=== PATIENT | female | born 1940 | race Hispanic/Latino ===

== ENCOUNTER 2017-03-04 16:04 | Inpatient (IN) | payer MEDICARE, OTHER ==
[~2017-03-04] VITALS: Ht 162.6 cm; Wt 75.8 kg
[~2017-03-04 16:04] MED LIST: ACETAMINOP325 MG/10 PEG; ACTONEL; ALBUTEROL2.5 MG/3 M INH; ALLOPURINOL300 MG PO; ASPIRIN; ASPIRIN CHEW81 MG PO; ASPIRIN81 M1 PEG; CIPRO500 MG PO; CLARITIN-D 241 EACH PO; CYMBALTA30 MG PO; CYMBALTA60 MG PEG; FLAGYL250 MG PO; FLONASE; FOLIC ACID1 MG PO; FUROSEMIDE; GABAPENTIN100 MG PEG; GINKGO BILOBA60 M1 PEG; GLIPIZIDE; HUMALOG100 UNIT/1 SQ; JANUMET; KEFLEX500 MG PO; LANTUS; LASIX40 MG PEG; LEVAQUIN500 MG PO; LEVEMIR100 UNIT/1 SQ; LIDODERM PATCH TOP; LYRICA50 MG PO; MACROBID 100 M100 MG PO; METOLAZONE5 MG PEG; METOPROLOL TART25 MG PO; NORCO 7.5-3251 EACH PO; NOVOLOG100 UNIT/1 SQ; NOVOLOG100 UNITS1 SC; NOVOLOG100 UNITS1 SQ; NOVOLOG100 UNITS1 SUBD; NYSTATIN1 EAC1 TOP; PANTOPRAZOLE SO20 MG PEG; PROTONIX40 MG PEG; PROTONIX40 MG/ML; QUESTRAN POWDE378 GM; REGLAN10 MG PO; TORSEMIDE20 MG PO; TRAMADOL-ACETAMI1 EA PO; TYLENOL WITH C1 EACH PO; ULTRAM 50MG50 MG PO; VANCOCIN HCL250 MG PO; VESICARE; VESICARE10 MG PO; VITAMIN B-12; VITAMIN D400 UNIT PO; VYTORIN; VYTORIN 10-401 EACH PO; ZAROXOLYN5 MG; ZOFRAN ODT4 MG PO; [UNRECOGNIZED DRUG - OTHER]; [UNRECOGNIZED DRUG - OTHER] PO
[2017-03-04] MEDS ORDERED: METHYLPREDNISOLONE SOD SUCC 125 MG/2ML VIAL IV STA (16:06)
[2017-03-04] MEDS ORDERED: IPRATROPIUM BROMIDE 0.02% 2.5 ML NEB NEB STA (16:06)
[2017-03-04] MEDS ORDERED: ALBUTEROL SULF 0.083% NEB SOLN 3 ML NEB NEB ONE (16:30)
--- NOTE | 2017-03-04 16:40 | Diagnostic Imaging Report ---
PROCEDURE: A single AP view of the chest. COMPARISON: Portal chest 01/29/2017. INDICATIONS: LOW O2 SATURATION FINDINGS: Lines/tubes: Tracheostomy catheter is present with the tip projecting over the expected region of the trachea, position 5 cm from the hiram. Lungs: Bilateral lung base air space opacities. Pleura: Moderate left pleural effusion. Small right pleural effusion. No pneumothorax. Heart and mediastinum: The heart and the mediastinum are unremarkable. Aortic stent graft. Atherosclerotic calcifications. Bones: No acute bony abnormality. Media sternotomy wires. Anterior cervical spine fusion hardware. Degenerative changes of the thoracic spine. IMPRESSION: Bilateral lung base air space opacities may represent atelectasis or developing pneumonia. Bilateral pleural effusions. Dictated by: Marcus Rose M.D. on 03/04/2017 at 16:47 Electronically approved by: Marcus Rose M.D. on 03/04/2017 at 16:47
[2017-03-04 17:29] LABS: BASOPHILS % 0.2 % (0.0-1.0); EOSINOPHILS # (AUTO) 0.1 (0.0-0.4); EOSINOPHILS % 0.3 % (0.0-6.0); HEMOGLOBIN 8.2 g/dL (12.0-16.0); LYMPHOCYTES # (AUTO) 1.3 (1.0-3.2); LYMPHOCYTES % 8.9 % (18.0-39.1); MEAN CORPUSCULAR HEMOGLOBIN 30.7 pg (28-32); MEAN CORPUSCULAR HGB CONC 34.2 g/dL (31-35); MEAN CORPUSCULAR VOLUME 89.9 fL (81-99); MONOCYTES % 6.5 % (4.4-11.3); NEUTROPHILS # (AUTO) 12.2 (2.1-6.9); NEUTROPHILS % 83.2 % (38.7-80.0); PLATELET COUNT 280 x10e3/uL (140-360); RED BLOOD COUNT 2.67 x10e6/uL (3.6-5.1); RED CELL DISTRIBUTION WIDTH 16.3 % (11.7-14.4)
[2017-03-04 17:52] LABS: ALBUMIN 2.5 g/dL (3.5-5.0); ALBUMIN/GLOBULIN RATIO 0.4 (0.8-2.0); ANION GAP 18.1 mmol/L (8-16); CREATININE, SERUM 2.62 mg/dL (0.57-1.11); POTASSIUM 5.1 mmol/L (3.5-5.1)
[2017-03-04] MEDS ORDERED: SODIUM CHLORIDE FLUSH 10 ML SYR INJ PRN (18:15)
[2017-03-04] MEDS ORDERED: METOCLOPRAMIDE10 MG PEG (18:22)
[2017-03-04] MEDS ORDERED: CLONIDINE HCL0.1 MG PEG (18:22)
[2017-03-04] MEDS ORDERED: AMLODIPINE BESY10 MG PEG (18:22)
[2017-03-04] MEDS ORDERED: METOPROLOL TART50 MG PEG (18:22)
[2017-03-04] MEDS ORDERED: SPIRONOLACTONE25 MG PEG (18:22)
[2017-03-04 18:55] LABS: BILIRUBIN,URINE NEGATIVE (NEGATIVE); CLARITY,URINE HAZY (CLEAR); COLOR,URINE YELLOW (YELLOW); KETONES,URINE NEGATIVE (NEGATIVE); LEUKOCYTE ESTERASE ,URINE 2+ (NEGATIVE); NITRITE,URINE NEGATIVE (NEGATIVE); URINE UROBILINOGEN 0.2 mg/dL (0.2 - 1)
[2017-03-04 18:56] LABS: PROTEIN,URINE DIPSTICK 2+ (NEGATIVE)
[2017-03-04] MEDS: ALBUTEROL SULF 0.083% NEB SOLN 3 ML NEB NEB SCH (19:00)
[2017-03-04] MEDS: IPRATROPIUM BROMIDE 0.02% 2.5 ML NEB NEB SCH (19:03)
[2017-03-04 19:04] LABS: EPITHELIAL CELLS,URINE FEW /LPF
[2017-03-04 19:05] LABS: AMORPHOUS SEDIMENT,URINE FEW (FEW); BACTERIA,URINE FEW /HPF; MUCUS,URINE MODERATE (RARE)
[2017-03-04] MEDS: CEFTRIAXONE SOD 1 GM in WATER STERILE 10ML VIAL 10 ML IV SCH (19:40)
[2017-03-04] MEDS: AZITHROMYCIN 500MG/NS 250 ML 250 ML IV SCH (19:50)
[2017-03-04 20:33] VITALS: BP 150/73
[2017-03-04] MEDS ORDERED: SPIRONOLACTONE 25 MG TAB PO SCH (23:00)
[2017-03-04] MEDS ORDERED: FUROSEMIDE 40 MG TAB PO SCH (23:00)
[2017-03-04] MEDS: INSULIN DETEMIR 100 UNIT/ML PEN SQ SCH (23:25)
[2017-03-05] VITALS: BP 133/85
[2017-03-05] MEDS ORDERED: METOPROLOL TARTRATE 50 MG TAB PO SCH
[2017-03-05] MEDS: ALBUTEROL SULF 0.083% NEB SOLN 3 ML NEB NEB SCH ×4 (01:07→20:30)
[2017-03-05] MEDS: IPRATROPIUM BROMIDE 0.02% 2.5 ML NEB NEB SCH ×4 (01:07→09:41)
[2017-03-05 04:23] VITALS: BP 151/79
[2017-03-05] MEDS: METOPROLOL TARTRATE 50 MG TAB PEG SCH ×3 (05:12→18:17)
[2017-03-05] MEDS ORDERED: CEFTRIAXONE SOD 1 GM VIAL ONE (05:15)
[2017-03-05] MEDS: CEFTRIAXONE SOD 1 GM in WATER STERILE 10ML VIAL 10 ML IV SCH (05:28)
[2017-03-05 08:07] VITALS: BP 134/79
[2017-03-05] MEDS ORDERED: FUROSEMIDE 40 MG TAB PEG SCH (09:00)
[2017-03-05] MEDS ORDERED: ASPIRIN 81 MG CHEW TAB PO SCH (09:00)
[2017-03-05] MEDS ORDERED: METOCLOPRAMIDE HCL 10 MG TAB PO SCH (09:00)
[2017-03-05] MEDS: LIDOCAINE 5% PATCH TP SCH (09:00)
[2017-03-05] MEDS ORDERED: CLONIDINE HCL 0.1 MG TAB PO SCH (09:00)
[2017-03-05] MEDS ORDERED: AMLODIPINE BESYLATE 10 MG TAB PO SCH (09:00)
[2017-03-05] MEDS: ASPIRIN 81 MG CHEW TAB PEG SCH (09:13)
[2017-03-05] MEDS: SPIRONOLACTONE 25 MG TAB PEG SCH ×2 (09:13→17:13)
[2017-03-05] MEDS: INSULIN LISPRO 100 UNIT/1 ML 3ML VIAL SQ SCH ×3 (09:13→16:30)
[2017-03-05] MEDS: CLONIDINE HCL 0.1 MG TAB PEG SCH ×2 (09:14→17:14)
[2017-03-05] MEDS: METOCLOPRAMIDE HCL 10 MG TAB PEG SCH ×4 (09:14→21:00)
[2017-03-05] MEDS: AMLODIPINE BESYLATE 10 MG TAB PEG SCH (09:14)
[2017-03-05] MEDS: CEFEPIME HCL 1GM 1 GM in WATER STERILE 10ML VIAL 10 ML IV SCH (16:00)
[2017-03-05] MEDS: BALSAM PERU/CASTOR OIL 60 GM OINT...G. TP SCH (17:14)
[2017-03-05] MEDS: FUROSEMIDE INJ 10 MG/ML 2 ML VIAL IV SCH (18:00)
[2017-03-05] MEDS: AZITHROMYCIN 500MG/NS 250 ML 250 ML IV SCH (19:00)
[2017-03-05] MEDS: INSULIN DETEMIR 100 UNIT/ML PEN SQ SCH (21:00)
--- NOTE | 2017-03-06 00:53 | Consultation ---
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 She required repair of the aneurysm and transaortic valve replacement. Essentially bedridden since that time. She has had recurrent pleural effusions, atelectasis, bilateral vocal cord paralysis requiring permanent tracheostomy. Taken care by her devoted spouse. She returned to the hospital from home, where she was noted to be hypoxic. She requested readmission according to the . MEDICATIONS: Been maintained at home on amlodipine, clonidine, Lasix, aspart insulin, Levemir insulin, Reglan, metoprolol, , Lidoderm patch. She is a retired RN. She had a history of vocal cord paralysis. She has had carotid surgery, long-standing hypertension, heart failure. She had hysterectomy, appendectomy in the past, PEG tube placement, and tracheostomy. Lethargic at the moment. She has had recent sepsis with gram-positive organisms, sputum have grown pseudomonas. She has also had funguria. EXAM VITALS: Temperature 96.5, respirations 18, pulse 63, blood pressure 134/80. HEAD: Normocephalic, atraumatic. Trach noted to be in place. LUNGS: Diminished breath sounds left chest. HEART: Regular rhythm. ABDOMEN: PEG is in place. EXTREMITIES: Charcot joint lower extremities. Patient is in decline likely infection and heart failure. Post-thoracotomy syndrome seems less likely. PLAN: Repeat thoracentesis. Continue antibiotic. Continue anti-pseudomonas cover. Low-dose steroids. diabetes and heart failure. Permanent tracheostomy is seen. Patient was only able to eat milkshakes at home. Thank you for this kind referral. Job#: [id number] CQ
[2017-03-06] MEDS: IPRATROPIUM BROMIDE 0.02% 2.5 ML NEB NEB SCH ×5 (03:20→23:25)
[2017-03-06] MEDS: ALBUTEROL SULF 0.083% NEB SOLN 3 ML NEB NEB SCH ×5 (03:20→23:25)
[2017-03-06] MEDS: CEFEPIME HCL 1GM 1 GM in WATER STERILE 10ML VIAL 10 ML IV SCH ×2 (04:15→16:15)
[2017-03-06] MEDS: FUROSEMIDE INJ 10 MG/ML 2 ML VIAL IV SCH ×2 (05:48→17:44)
[2017-03-06] MEDS: METOPROLOL TARTRATE 50 MG TAB PEG SCH ×4 (05:48→17:44)
[2017-03-06 06:22] LABS: INR 1.05; PARTIAL THROMBOPLASTIN TIME 31.9 seconds (23.8-35.5); PROTHROMBIN TIME 14.2 seconds (11.9-14.5)
[2017-03-06] MEDS: INSULIN LISPRO 100 UNIT/1 ML 3ML VIAL SQ SCH ×3 (08:00→17:00)
[2017-03-06 08:42] VITALS: BP 145/73
[2017-03-06] MEDS: LIDOCAINE 5% PATCH TP SCH (09:00)
[2017-03-06] MEDS: BALSAM PERU/CASTOR OIL 60 GM OINT...G. TP SCH ×2 (09:00→17:00)
[2017-03-06] MEDS ORDERED: FENTANYL CITRATE/PF 100MCG/2 ML INJ ONE (11:38)
[2017-03-06] MEDS ORDERED: MIDAZOLAM HCL 2 MG/2 ML VIAL ONE (11:38)
[2017-03-06 12:49] VITALS: BP 160/75
[2017-03-06] MEDS: SPIRONOLACTONE 25 MG TAB PEG SCH ×2 (13:45→17:45)
[2017-03-06] MEDS: METOCLOPRAMIDE HCL 10 MG TAB PEG SCH ×3 (13:45→21:50)
[2017-03-06] MEDS: PREDNISONE 10 MG TAB PO SCH (13:45)
[2017-03-06] MEDS: CLONIDINE HCL 0.1 MG TAB PEG SCH ×2 (13:45→17:45)
[2017-03-06] MEDS: ASPIRIN 81 MG CHEW TAB PEG SCH (13:45)
[2017-03-06] MEDS: AMLODIPINE BESYLATE 10 MG TAB PEG SCH (13:45)
[2017-03-06 14:10] VITALS: BP 146/76
--- NOTE | 2017-03-06 14:13 | Diagnostic Imaging Report ---
PROCEDURE: CHEST XRAY POST PROCEDURE COMPARISON: Portable chest 03/04/2017. INDICATIONS: POST THORACENTESIS LEFT SIDE FINDINGS: LUNGS: No consolidations or edema. Bibasilar atelectasis.Stable tracheostomy. PLEURA: Interval decrease in size of the left pleural effusion. No pneumothorax. HEART \T\ MEDIASTINUM: The heart is within normal size-limits. Stable thoracic stent graft. BONES \T\ SOFT TISSUES: No acute findings. Anterior cervical spine fusion hardware. Degenerative changes of the thoracic spine. CONCLUSION: Decrease in size of the left pleural effusion. No pneumothorax. Dictated by: Marcus Rose M.D. on 03/06/2017 at 14:21 Electronically approved by: Marcus Rose M.D. on 03/06/2017 at 14:21
--- NOTE | 2017-03-06 14:27 | Diagnostic Imaging Report ---
PROCEDURE: ULTRASOUND GUIDED THORACENTESIS COMPARISON: None. INDICATIONS:Pleural Effusion FINDINGS: After informed consent was obtained, the patient was placed in the sitting position and preliminary ultrasound of the posterior chest identified a safe route into the left pleural effusion. The overlying skin was prepped and draped in usual sterile fashion. Lidocaine 1% was used for local anesthesia. Under ultrasound guidance, a centesis needle was advanced into the pleural fluid and 200 cc were aspirated. The patient tolerated the procedure well and there were no immediate post-procedural complications. A post-thoracentesis chest radiograph will be obtained. CONCLUSION: Uncomplicated ultrasound-guided left thoracentesis with removal of 200 cc. Dictated by: Marcus Rose M.D. on 03/06/2017 at 14:34 Electronically approved by: Marcus Rose M.D. on 03/06/2017 at 14:34
[2017-03-06 16:15] LABS: BODY FLUID TYPE PLEURAL
[2017-03-06 16:16] LABS: BODY FLUID APPEARANCE SL.CLOUDY; BODY FLUID COLOR STRAW
[2017-03-06 16:19] VITALS: BP 140/68
[2017-03-06 16:35] LABS: RBC,BODY FLUID 300 cells/uL; WBC,BODY FLUID 93 cells/uL
[2017-03-06 16:42] LABS: LYMPHOCYTES,BODY FLUID 79 %; MONO/MACROPHG,BODY FLUID 19 %; NEUTROPHILS,BODY FLUID 2 %
[2017-03-06 20:00] VITALS: BP 145/77
[2017-03-06] MEDS ORDERED: SODIUM CHLORIDE 0.9% 250ML 250 ML ONE (20:01)
[2017-03-06] MEDS: AZITHROMYCIN 500MG/NS 250 ML 250 ML IV SCH (20:14)
[2017-03-06] MEDS ORDERED: FLUCONAZOLE 200 MG/100 ML 100 ML IV SCH (21:00)
[2017-03-06] MEDS: INSULIN DETEMIR 100 UNIT/ML PEN SQ SCH (21:51)
[2017-03-07] VITALS: BP 141/77
[2017-03-07] MEDS: METOPROLOL TARTRATE 50 MG TAB PEG SCH ×5 (00:45→17:16)
[2017-03-07 04:00] VITALS: BP 150/75
[2017-03-07] MEDS: FUROSEMIDE INJ 10 MG/ML 2 ML VIAL IV SCH ×2 (05:32→17:16)
[2017-03-07] MEDS: CEFEPIME HCL 1GM 1 GM in WATER STERILE 10ML VIAL 10 ML IV SCH ×2 (05:32→16:15)
[2017-03-07] MEDS: IPRATROPIUM BROMIDE 0.02% 2.5 ML NEB NEB SCH ×2 (07:10→13:10)
[2017-03-07] MEDS: ALBUTEROL SULF 0.083% NEB SOLN 3 ML NEB NEB SCH ×2 (07:10→13:15)
[2017-03-07] MEDS: INSULIN LISPRO 100 UNIT/1 ML 3ML VIAL SQ SCH ×3 (08:00→17:00)
[2017-03-07 08:21] VITALS: BP 151/73
[2017-03-07] MEDS: SPIRONOLACTONE 25 MG TAB PEG SCH ×2 (09:00→17:00)
[2017-03-07] MEDS: AMLODIPINE BESYLATE 10 MG TAB PEG SCH (09:00)
[2017-03-07] MEDS: METOCLOPRAMIDE HCL 10 MG TAB PEG SCH ×2 (09:00→13:00)
[2017-03-07] MEDS: BALSAM PERU/CASTOR OIL 60 GM OINT...G. TP SCH ×2 (09:00→17:00)
[2017-03-07] MEDS: PREDNISONE 10 MG TAB PO SCH (09:00)
[2017-03-07] MEDS: ASPIRIN 81 MG CHEW TAB PEG SCH (09:00)
[2017-03-07] MEDS: LIDOCAINE 5% PATCH TP SCH (09:00)
[2017-03-07] MEDS: CLONIDINE HCL 0.1 MG TAB PEG SCH ×2 (09:00→17:00)
[2017-03-07] MEDS ORDERED: LINEZOLID 600 MG TAB PO SCH (10:00)
[2017-03-07] MEDS ORDERED: DIFLUCAN200 MG PO (11:10)
[2017-03-07] MEDS ORDERED: ZYVOX600 MG PO (11:11)
[2017-03-07 12:12] VITALS: BP 141/75
[2017-03-07 16:04] VITALS: BP 138/74
== END 2017-03-07 17:41 | disposition home or self-care (01) | DRG 187 ==
LOC: ER 16:04 → ERHOLD 18:42 → UNDOADMIN 18:42 → ERHOLD 18:43 → MED/SURG2 19:53 → ERHOLD 19:53
PROC: 0W9B3ZZ Drainage of Left Pleural Cavity, Percutaneous Approach (ICD-10-PCS; principal; 2017-03-06)
DX: J90 Pleural effusion, not elsewhere classified (principal); J96.11 Chronic respiratory failure with hypoxia; L89.152 Pressure ulcer of sacral region, stage 2; E11.22 Type 2 diabetes mellitus with diabetic chronic kidney disease; E11.610 Type 2 diabetes mellitus with diabetic neuropathic arthropathy; T83.511A Infection and inflammatory reaction due to indwelling urethral catheter, initial encounter; N39.0 Urinary tract infection, site not specified; Z93.0 Tracheostomy status; N18.3 Chronic kidney disease, stage 3 (moderate); I25.10 Atherosclerotic heart disease of native coronary artery without angina pectoris; Z79.4 Long term (current) use of insulin; Z95.2 Presence of prosthetic heart valve; Z93.1 Gastrostomy status
CPT/HCPCS: 32555; 36415; 71010; 74470; 80053; 81001; 82945; 82948; 83615; 83880; 84157; 85025; 85610; 85730; 87040; 87071; 87086; 87186; 87205; 89051; 93005; 94640; 99284; J0456; J0692; J0696; J1450; J1940; J2250; J7050

== ENCOUNTER 2017-04-20 01:15 | Inpatient (IN) | payer MEDICARE, OTHER ==
[~2017-04-20] VITALS: Ht 162.6 cm; Wt 67.2 kg
[~2017-04-20 01:15] MED LIST changes: +AMLODIPINE BESY10 MG PEG; +CLONIDINE HCL0.1 MG PEG; +DIFLUCAN200 MG PO; +METOCLOPRAMIDE10 MG PEG; +METOPROLOL TART50 MG PEG; +SPIRONOLACTONE25 MG PEG; +ZYVOX600 MG PO
--- NOTE | 2017-04-20 02:14 | Diagnostic Imaging Report ---
EXAMINATION: CHEST SINGLE (PORTABLE) INDICATION: Cough , Hemoptysis COMPARISON: 03/06/2017 and 03/04/2017 FINDINGS: TUBES and LINES: Tracheostomy tube is stable in good position. Visualized right common carotid artery stent and aortic stent are stable LUNGS: Lungs are not well inflated. There are bibasilar atelectasis. There is mild prominence of the central pulmonary vasculature, consistent with pulmonary venous congestion. There is persistent airspace disease in the left hemithorax in the perihilar region. The right hemithorax is clear. PLEURA: Persistent small left pleural effusion. HEART AND MEDIASTINUM: The cardiomediastinal silhouette is unremarkable. BONES AND SOFT TISSUES: No acute osseous lesion. Soft tissues are unremarkable. UPPER ABDOMEN: No free air under the diaphragm. IMPRESSION: Persistent left hemithorax airspace disease and pleural effusion may be related to prior sternotomy or aortic stent placement. Differential diagnosis may include left upper lobe pneumonia or pulmonary infarct Signed by: Dr. Shakir Strong M.D. on 04/20/2017 2:11 AM
--- NOTE | 2017-04-20 02:29 | Diagnostic Imaging Report ---
EXAMINATION: Head CT without contrast. HISTORY:Altered mental status. COMPARISON:CT brain from 01/30/2017 and MRI brain from 02/01/2017. TECHNIQUE: Multidetector axial images were obtained from the foramen magnum to the vertex without contrast. The images were reconstructed using brain and bone algorithms. Thin section brain images were reformatted into coronal and sagittal planes. Intravenous contrast: None IMAGE QUALITY: Acceptable. FINDINGS: Skull/scalp: No abnormality. Parenchyma: Nonspecific bilateral frontoparietal confluent periventricular and patchy subcortical and deep white matter hypodensity are likely related to small vessel ischemic changes. Old lacunar infarct in left centrum semiovale while he and left lentiform nucleus. No acute hemorrhage, mass or acute major vascular territorial infarct. Arteries: Atherosclerotic calcification in bilateral carotid siphon. Dural sinuses: No abnormal density suggestive of thrombosis. Ventricles: Mild compensated dilatation due to volume loss. No hydrocephalus. Extra-axial spaces: Unchanged bilateral superior frontal convexity extra-axial cystic lesion with regional mass effect possibly represents an arachnoid cyst. Brain volume: Generalized age-related cerebral volume loss. Craniocervical junction: No mass, Chiari malformation, or basilar invagination. Sella: No mass. Paranasal/mastoid sinuses: Partial opacification of bilateral mastoid air cells. IMPRESSION: No acute intracranial abnormality, particularly no acute hemorrhage, mass or acute major vascular territorial infarct. Chronic findings: Old lacunar infarct in left centrum semiovale. Old lacunar infarct versus prominent perivascular space in left lentiform nucleus. Moderate supratentorial white matter microvascular ischemic changes. Generalized age-related cerebral volume loss. Signed by: Dr. Crystal Hall M.D. on 04/20/2017 2:22 AM
[2017-04-20] MEDS ORDERED: CEFEPIME HCL 2 GM VIAL IV STA (02:47)
[2017-04-20] MEDS ORDERED: LEVOFLOXACIN 500MG/D5W 100ML 100 ML IV STA (02:47)
[2017-04-20 03:12] LABS: BILIRUBIN,URINE NEGATIVE (NEGATIVE); KETONES,URINE NEGATIVE (NEGATIVE); LEUKOCYTE ESTERASE ,URINE 2+ (NEGATIVE); NITRITE,URINE NEGATIVE (NEGATIVE); URINE UROBILINOGEN 0.2 mg/dL (0.2 - 1)
[2017-04-20 03:14] LABS: BASOPHILS % 0.3 % (0.0-1.0); EOSINOPHILS # (AUTO) 0.1 (0.0-0.4); EOSINOPHILS % 0.5 % (0.0-6.0); HEMATOCRIT 24.5 % (34.2-44.1); LYMPHOCYTES # (AUTO) 2.3 (1.0-3.2); LYMPHOCYTES % 20.1 % (18.0-39.1); MEAN CORPUSCULAR HEMOGLOBIN 30.7 pg (28-32); MEAN CORPUSCULAR HGB CONC 31.8 g/dL (31-35); MEAN CORPUSCULAR VOLUME 96.5 fL (81-99); MONOCYTES # (AUTO) 0.8 (0.2-0.8); MONOCYTES % 7.1 % (4.4-11.3); NEUTROPHILS # (AUTO) 8.3 (2.1-6.9); NEUTROPHILS % 71.6 % (38.7-80.0); PLATELET COUNT 335 x10e3/uL (140-360); RED BLOOD COUNT 2.54 x10e6/uL (3.6-5.1); RED CELL DISTRIBUTION WIDTH 13.2 % (11.7-14.4)
[2017-04-20 03:16] LABS: CLARITY,URINE SL CLOUDY (CLEAR); COLOR,URINE YELLOW (YELLOW); PROTEIN,URINE DIPSTICK 2+ (NEGATIVE)
[2017-04-20 03:17] LABS: HEMOGLOBIN 7.8 g/dL (12.0-16.0)
[2017-04-20] MEDS ORDERED: SODIUM CHLORIDE 0.9% 250ML 250 ML ONE (03:18)
[2017-04-20 03:22] LABS: INR 1.06; PARTIAL THROMBOPLASTIN TIME 33.8 seconds (23.8-35.5); PROTHROMBIN TIME 14.4 seconds (11.9-14.5)
[2017-04-20 03:23] LABS: AMORPHOUS SEDIMENT,URINE FEW (FEW); BACTERIA,URINE MANY /HPF; EPITHELIAL CELLS,URINE FEW /LPF; WBC,URINE (MAN) >50 /HPF (0-5)
[2017-04-20 03:29] LABS: ABG PCO2 43 mmHg (41-51); ABG PH 7.52 (7.31-7.41)
[2017-04-20 03:30] LABS: ABG HCO3 35 mmol/L (23-28); ABG PO2 86 mmHg (80-105)
[2017-04-20] MEDS ORDERED: FUROSEMIDE INJ 10 MG/ML 2 ML VIAL IV PRN (03:30)
[2017-04-20] MEDS ORDERED: SODIUM CHLORIDE 0.9% 250ML 250 ML IV ONE (03:30)
[2017-04-20 03:32] LABS: ALANINE AMINOTRANSFERASE 11 IU/L (0-55); ALBUMIN 2.5 g/dL (3.5-5.0); ALBUMIN/GLOBULIN RATIO 0.4 (0.8-2.0); ALKALINE PHOSPHATASE 90 IU/L (40-150); ANION GAP 15.3 mmol/L (8-16); BLOOD UREA NITROGEN 73 mg/dL (7-26); BUN/CREATININE RATIO 45 (6-25); CALCIUM 9.7 mg/dL (8.4-10.2); CARBON DIOXIDE 31 mmol/L (22-29); CHLORIDE 95 mmol/L (98-107); CREATINE KINASE 19 IU/L (29-168); CREATININE, SERUM 1.61 mg/dL (0.57-1.11); EST GLOMERULAR FILTRATION RATE 31 ML/MIN (60-); GLUCOSE 112 mg/dL (74-118); LIPASE 22 U/L (8-78); MAGNESIUM 1.8 MG/DL (1.3-2.1); POTASSIUM 4.3 mmol/L (3.5-5.1); SODIUM 137 mmol/L (136-145)
[2017-04-20 03:33] LABS: B-TYPE NATRIURETIC PEPTIDE2 305.5 pg/mL (0-100)
[2017-04-20 03:52] LABS: THYROID STIMULATING HORMONE 3.277 uIU/mL (0.350-4.940)
[2017-04-20 06:47] VITALS: BP 140/78
[2017-04-20] MEDS ORDERED: ALBUTEROL SULF 0.083% NEB SOLN 3 ML NEB NEB SCH (07:00)
[2017-04-20] MEDS: INSULIN REGULAR, HUMAN 100 UNIT/1 ML 3ML VIAL SQ SCH ×4 (07:30→21:00)
[2017-04-20 08:00] VITALS: BP 141/66
[2017-04-20] MEDS: IPRATROPIUM BROMIDE 0.02% 2.5 ML NEB NEB SCH ×3 (08:00→20:00)
--- NOTE | 2017-04-20 11:16 | Consultation ---
DATE OF CONSULTATION: April 20, 2017 PULMONARY CONSULTATION A patient of Dr. Claus Gardner, Dr. Umaña, Dr. Alvarez. 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 She has been bedridden since that time. She was admitted with hemoptysis which was reported as quite brisk. This is a new finding. She is essentially bedridden. She has a history of chronic bilateral vocal cord paralysis requiring permanent tracheostomy. She is cared for by her devoted spouse. She has had carotid surgery, hypertension, congestive heart failure, hysterectomy, appendectomy. PEG tube placement, tracheostomy, both of which are present. She is able to swallow but supplements her feedings with tube feedings at night occasionally. She also has a history of funguria in the past. She is a well-developed white female, sleepy but easily aroused. She has had recurrent left thoracenteses, recurrent pleural effusions after her surgery. They have largely been transudative. PHYSICAL EXAMINATION GENERAL: She is an elderly white female, quite responsive. NECK: Tracheostomy is in place. LUNGS: Diminished breath sounds left chest. HEART: Regular rhythm. ABDOMEN: PEG is in place. EXTREMITIES: There are Charcot's joints noted. She is anemic. Cultures are pending. Chest x-ray reveals chronic left effusion, chronic infiltrates, surgical wires and aortic valve. She is currently on antibiotics. Will resume her home medications. Will plan bronchoscopy. Will ask for ENT opinion. It is also possible that the bleeding is coming from the area of the irritation from her chronic tracheostomy. Bronchoscopy has been scheduled, and we are waiting in the operating room. Thank you for this kind referral. Job#: [id number] EV
[2017-04-20 12:00] VITALS: BP 145/67
[2017-04-20] MEDS: METOPROLOL TARTRATE 25 MG TAB PEG SCH ×2 (12:00→17:01)
[2017-04-20] MEDS: INSULIN LISPRO 100 UNIT/1 ML 3ML VIAL SQ SCH ×2 (12:00→17:11)
[2017-04-20] MEDS ORDERED: LIDOCAINE 1% W/EPINEPHRINE 20 ML VIAL ONE (12:19)
[2017-04-20] MEDS ORDERED: LIDOCAINE HCL-PF 4% 40 MG/1 ML 5ML AMP ONE (12:19)
[2017-04-20] MEDS ORDERED: LIDOCAINE HCL 4% 50 ML BTL ONE (12:23)
[2017-04-20] MEDS: METOCLOPRAMIDE HCL 10 MG TAB PEG SCH ×3 (12:25→21:38)
--- NOTE | 2017-04-20 13:28 | History and Physical ---
REASON FOR ER VISIT: Hemoptysis. HISTORY OF PRESENT ILLNESS: This is a 76-year-old woman who presents to [facility] emergency room with a 1-day history of worsening gross hemoptysis. Patient has a tracheostomy tube in place and for the last 24 hours has had a significant amount of bleeding from this tracheostomy site. The patient had a chest x-ray done in the emergency room which revealed persistent left hemithorax air-space disease and a small left pleural effusion. The patient also underwent a CT of the brain which revealed chronic ischemic changes, but no acute intracranial pathology was appreciated. Urinalysis revealed slightly cloudy yellow urine with 2+ blood, 2+ leukocyte esterase, 11-20 red blood cells per high-power field, and greater than 50 white blood cells per high-power field. Patient was also found to have many bacteria in the urinalysis. The patient was also found to have a BUN and creatinine of 73 and 1.61 respectively. Patient's B-type natriuretic peptide level was elevated to 305. Patient was admitted for further evaluation. The patient was actually seen by an ear, nose, throat doctor, namely Dr. Alvarez, who performed laryngoscopy which revealed retained food product. Patient was admitted for further evaluation and treatment. Patient was found to have a hemoglobin of 7.8 g/dl in the emergency room. Subsequently a blood transfusion was ordered in the emergency room. REVIEW OF SYSTEMS GENERAL: Weight has been stable. No fever or chills. HEENT: No headaches. No visual changes. CARDIOVASCULAR/RESPIRATORY: Worsening shortness of breath and cough as well as hemoptysis for the last 24 hours prior to admission. GI: No nausea, vomiting. : Patient has a history of recurrent urinary tract infection. In fact, has urinary tract infection on this admission. NEUROMUSCULAR: No documentation of any new limb weakness or numbness. PAST MEDICAL HISTORY 1. Chronic respiratory failure (patient has a tracheostomy tube in place). 2. Chronic diastolic congestive heart failure. 3. Hypertensive heart disease. 4. Stage 3 chronic renal disease. 5. 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 6. Depression. 7. GERD. FAMILY HISTORY: Noncontributory. SOCIAL HISTORY: This woman is , lives with her . No history of tobacco or alcohol use. ALLERGIES: NO KNOWN DRUG ALLERGIES. SURGICAL HISTORY 1. Hysterectomy. 2. Appendectomy. 3. Thoracic aortic dissection repair in May 2016. 4. PEG tube placement. 5. Tracheostomy tube placement. MEDICATIONS 1. Amlodipine 10 mg daily. 2. Aspirin 81 mg daily. 3. Clonidine 0.1 mg b.i.d. 4. Fluconazole 200 mg daily. 5. Furosemide 40 mg daily. 6. NovoLog insulin 5 units subcutaneous t.i.d. with meals. 7. Levemir insulin 15 units subcutaneous nightly. 8. Linezolid 600 mg b.i.d. 9. Metoclopramide 10 mg q.i.d. 10. Metoprolol tartrate 75 mg q.6 h. 11. Spironolactone 25 mg b.i.d. 12. Lidoderm 5% patch, 1 patch applied to affected area daily. PHYSICAL EXAMINATION GENERAL: She is awake, alert. She does not appear to be in respiratory distress. VITAL SIGNS: Height is 5 feet 4 inches. Weight is 167 pounds. Blood pressure is 145/67, pulse 102, respiratory rate is 22, oxygen saturation currently is 99% on tracheostomy collar, temperature 98.7. DIAGNOSES 1. Hemoptysis. 2. Left lower lobe pneumonia, likely gram-negative rods. 3. Sepsis secondary to urinary tract infection. 4. Chronic respiratory failure. 5. Stage 3 chronic kidney disease. 6. Acute anemia likely secondary to hemoptysis. 7. Hypertensive heart disease. 8. [id number] diastolic congestive heart failure. PLAN 1. Follow hemoglobin and hematocrit. 2. Agree with blood transfusion. 3. Consult transit specialist. 4. I agree with bronchoscopy as planned by transit specialist. 5. Continue intravenous antibiotics. 6. Follow renal function. 7. Congestive heart failure medical management. 8. Respiratory care. I spent 45 minutes in the care of this patient. Job#: [id number] EV
[2017-04-20] MEDS: ALBUTEROL SULF 0.083% NEB SOLN 3 ML NEB NEB SCH ×2 (14:25→20:00)
[2017-04-20 14:46] LABS: CREATINE KINASE MB 1.4 ng/mL (0.00-5.00)
[2017-04-20] MEDS ORDERED: CEFEPIME HCL 2 GM VIAL IV SCH (15:00)
[2017-04-20] MEDS ORDERED: CEFEPIME 2 GM/NS 0.9% 100 ML 100 ML IV SCH (15:00)
[2017-04-20] MEDS ORDERED: LIDOCAINE HCL 2% LOCAL INJ 5 ML SDV VIAL INJ ONE (15:10)
[2017-04-20] MEDS ORDERED: MIDAZOLAM HCL 2 MG/2 ML VIAL ONE (15:10)
[2017-04-20] MEDS ORDERED: PROPOFOL IV EMULSION 10 MG/ML 20 ML VIAL ONE (15:10)
[2017-04-20] MEDS: CEFEPIME HCL 2 GM VIAL IV SCH (15:40)
[2017-04-20 16:00] VITALS: BP 154/70
--- NOTE | 2017-04-20 16:11 | Consultation ---
DATE OF CONSULTATION: April 20, 2017 OTOLARYNGOLOGY CONSULTATION HISTORY OF PRESENT ILLNESS: I was kindly asked to see this 76-year-old woman well known to me from previous outpatient and inpatient evaluation and treatment. She has a history of tracheostomy after a series of surgical procedures. She first had a right-sided carotid endarterectomy with secondary right vocal cord paralysis and subsequently required a medialization procedure of the right vocal cord by another physician. 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 She has had a persistent bilateral vocal cord paralysis with upper airway obstruction necessitating trach dependence. She now presents with anemia and hemoptysis. Her history of present illness, past medical history and past surgical history were reviewed in detail on the chart and are pertinent as above. PHYSICAL EXAMINATION: The nose reveals a mild nasal septal deviation to the left. Oral cavity is unremarkable. Tracheostomy site appears quiescent. The tracheostomy tube was removed. There was no granulation tissue noted at the tracheostomy site. Fiberoptic evaluation through the tracheostomy tube shows no bleeding points on the trachea. There was mild irritation at the level of the hiram, and there was bloody mucus in the mainstem bronchi, significantly worse on the left side. On fiberoptic laryngoscopy, she was noted to have a foreign body in the larynx, which appears to be a pasta noodle which goes through the vocal cords and draped over the right arytenoid. Despite numerous attempts to dislodge the foreign body and have the patient either swallow or cough the foreign body up, the foreign body remained in place. ASSESSMENT 1. No bleeding from the tracheostomy site, trachea or mainstem bronchi identified. 2. Foreign body of the larynx. PLAN: I will perform direct laryngoscopy with removal of the foreign body at the time of bronchoscopy. Job#: [id number] EV
[2017-04-20] MEDS: CLONIDINE HCL 0.1 MG TAB PEG SCH (16:15)
[2017-04-20] MEDS: SPIRONOLACTONE 25 MG TAB PEG SCH (16:15)
--- NOTE | 2017-04-20 16:45 | Operative Report ---
DATE OF PROCEDURE: April 20, 2017 PREOPERATIVE DIAGNOSIS: Laryngeal foreign body. POSTOPERATIVE DIAGNOSIS: Laryngeal foreign body. PROCEDURE: Direct laryngoscopy with foreign body removal. ANESTHESIA: General. ESTIMATED BLOOD LOSS: Less than 10 mL. COMPLICATIONS: None. OPERATIVE FINDINGS: Foreign body of the larynx with probable [place]-Art right vocal cord medialization extruding into the larynx. OPERATIVE INDICATIONS: This 76-year-old woman presented with a history of hemoptysis. She has a history of right vocal cord paralysis after carotid endarterectomy, which was treated downtown with a vocal cord medialization procedure. She subsequently developed aortic arch dissection. After surgical repair, had bilateral vocal cord paralysis and tracheostomy. She presented to the hospital with anemia and hemoptysis. On fiberoptic laryngoscopy, there was a foreign body noted in the larynx. The patient was to undergo bronchoscopy, and it was elected to simultaneously perform direct laryngoscopy with foreign body removal. The risks, benefits and alternatives to surgical intervention were discussed in detail with the patient. She gave her informed consent to have this procedure performed. NARRATIVE REPORT: After first obtaining adequate general anesthesia, the [place] operating laryngoscope was used to examine the larynx. There was a 6 mm x 1 mm strip of material in the larynx. This was grasped with foreign body forceps and gently removed. The material appeared to be tethered to the right laryngeal ventricle region. Hemostats were then used to grasp the foreign body and gently remove the packing material. After removal, there was no additional foreign body noted within the laryngeal ventricle. The visualized subglottis was unremarkable. The patient was in satisfactory condition at the termination portion of the otolaryngology portion of the procedure. Job#: [id number] PETE AGARWAL
--- NOTE | 2017-04-20 16:52 | Operative Report ---
DATE OF PROCEDURE: April 20, [address] Claus Gardner. Patient with hemoptysis. Bronchoscopy was scheduled. Dr. Alvarez was consulted. Prior to the bronchoscopy, the upper airway was visualized and foreign body was noted in the area of the larynx. Patient was then taken to the operating room. She was ventilated through the number [address] Alvraez proceeded to remove foreign body from the area of the larynx. Prior to this, he had examined the trachea at the area of the tracheostomy and it was found to be intact with no bleeding. Patient was bronchoscoped through the tracheostomy tube after the inner cannula was removed. There was moderately severe tracheobronchitis, particularly around the right lower lobe and left lower lobe bronchi, but no obstructing lesions were seen, no active bleeding. The patient tolerated procedure well. It was felt most likely the bleeding was coming from the upper airway in the area of the laryngeal foreign body, which was removed in pieces prior to the bronchoscopy. Patient was taken to the recovery room. There was minimal blood loss, none during the bronchoscopy. Specimens were sent for culture and cytologic evaluation. Job#: [id number] KATHERYN
[2017-04-20 20:00] VITALS: BP 142/69
[2017-04-20 21:26] LABS: HEMATOCRIT 30.6 % (34.2-44.1); HEMOGLOBIN 10.3 g/dL (12.0-16.0)
[2017-04-20 21:42] LABS: CREATINE KINASE MB 1.3 ng/mL (0.00-5.00)
[2017-04-21] VITALS: BP 136/65
[2017-04-21] MEDS: METOPROLOL TARTRATE 25 MG TAB PEG SCH ×4 (00:03→17:41)
[2017-04-21] MEDS: ACETAMINOPHEN 325 MG TAB PO PRN (00:04)
[2017-04-21] MEDS ORDERED: SODIUM CHLORIDE 0.9% 250ML 250 ML ONE (02:45)
[2017-04-21] MEDS: IPRATROPIUM BROMIDE 0.02% 2.5 ML NEB NEB SCH ×3 (02:50→13:59)
[2017-04-21] MEDS: ALBUTEROL SULF 0.083% NEB SOLN 3 ML NEB NEB SCH ×4 (02:50→19:37)
[2017-04-21] MEDS: CEFEPIME HCL 2 GM VIAL IV SCH ×2 (03:00→14:03)
[2017-04-21] MEDS: LEVOFLOXACIN 250MG/D5W 50ML 50 ML IV SCH (03:03)
[2017-04-21 04:00] VITALS: BP 163/70
[2017-04-21 07:28] LABS: BASOPHILS % 0.2 % (0.0-1.0); EOSINOPHILS # (AUTO) 0.1 (0.0-0.4); EOSINOPHILS % 0.5 % (0.0-6.0); HEMOGLOBIN 10.4 g/dL (12.0-16.0); LYMPHOCYTES # (AUTO) 1.4 (1.0-3.2); LYMPHOCYTES % 10.8 % (18.0-39.1); MEAN CORPUSCULAR HEMOGLOBIN 30.3 pg (28-32); MEAN CORPUSCULAR HGB CONC 33.5 g/dL (31-35); MEAN CORPUSCULAR VOLUME 90.4 fL (81-99); MONOCYTES % 7.3 % (4.4-11.3); NEUTROPHILS # (AUTO) 10.7 (2.1-6.9); NEUTROPHILS % 80.6 % (38.7-80.0); PLATELET COUNT 247 x10e3/uL (140-360); RED BLOOD COUNT 3.43 x10e6/uL (3.6-5.1); RED CELL DISTRIBUTION WIDTH 14.7 % (11.7-14.4)
[2017-04-21 07:36] LABS: ALBUMIN 2.3 g/dL (3.5-5.0); ALBUMIN/GLOBULIN RATIO 0.4 (0.8-2.0); ANION GAP 18.1 mmol/L (8-16); CALCIUM 9.3 mg/dL (8.4-10.2); CREATININE, SERUM 1.77 mg/dL (0.57-1.11); POTASSIUM 4.1 mmol/L (3.5-5.1)
[2017-04-21 08:00] VITALS: BP 155/70
--- NOTE | 2017-04-21 08:18 | Diagnostic Imaging Report ---
EXAMINATION: CHEST SINGLE (PORTABLE) INDICATION: \S\PNEMONIA \S\[id number] \S\[id number] \S\Y COMPARISON: 04/20/2017 FINDINGS: AP view TUBES and LINES: Stable tracheostomy tube and adjacent vascular stent. Stable descending thoracic aorta stent and median sternotomy wires. LUNGS: Limited by low lung volumes and rotation. Bilateral lower lung field airspace opacities, left more than right. PLEURA: Small left pleural effusion. No pneumothorax. HEART AND MEDIASTINUM: Enlarged cardiac mediastinal silhouette. BONES AND SOFT TISSUES: No acute osseous lesion. Cervical spine fusion hardware. Severe degenerative changes of the right shoulder. Soft tissues are unremarkable. UPPER ABDOMEN: No free air under the diaphragm. IMPRESSION: Unchanged small left pleural effusion. Underlying pneumonia cannot be excluded. Mildly increased right basilar opacification, representing effusion and/or atelectasis. Signed by: Dr. Tarik Centeno MD on 04/21/2017 8:15 AM
[2017-04-21] MEDS: INSULIN REGULAR, HUMAN 100 UNIT/1 ML 3ML VIAL SQ SCH ×4 (08:25→21:28)
[2017-04-21] MEDS: SPIRONOLACTONE 25 MG TAB PEG SCH ×2 (08:26→17:40)
[2017-04-21] MEDS: METOCLOPRAMIDE HCL 10 MG TAB PEG SCH ×4 (08:26→21:28)
[2017-04-21] MEDS: AMLODIPINE BESYLATE 10 MG TAB PEG SCH (08:26)
[2017-04-21] MEDS: LIDOCAINE 5% PATCH TP SCH (08:26)
[2017-04-21] MEDS: CLONIDINE HCL 0.1 MG TAB PEG SCH ×2 (08:26→17:40)
[2017-04-21] MEDS: FUROSEMIDE 40 MG TAB PEG SCH (08:26)
[2017-04-21] MEDS: INSULIN LISPRO 100 UNIT/1 ML 3ML VIAL SQ SCH ×3 (08:26→17:00)
[2017-04-21] MEDS ORDERED: ASPIRIN 81 MG CHEW TAB PEG SCH (09:00)
[2017-04-21 12:00] VITALS: BP 139/66
[2017-04-21 20:00] VITALS: BP 124/60
[2017-04-22] VITALS (7 sets, daily range): BP systolic 152–165; BP diastolic 64–77
[2017-04-22] MEDS: METOPROLOL TARTRATE 25 MG TAB PEG SCH ×4 (01:00→17:44)
[2017-04-22] MEDS: ALBUTEROL SULF 0.083% NEB SOLN 3 ML NEB NEB SCH ×4 (01:07→19:25)
[2017-04-22] MEDS: IPRATROPIUM BROMIDE 0.02% 2.5 ML NEB NEB SCH ×4 (01:07→19:25)
[2017-04-22] MEDS: CEFEPIME HCL 2 GM VIAL IV SCH ×2 (03:35→14:53)
[2017-04-22] MEDS: LEVOFLOXACIN 250MG/D5W 50ML 50 ML IV SCH (03:35)
[2017-04-22 07:10] LABS: BASOPHILS # (AUTO) 0.1 (0.0-0.1); BASOPHILS % 0.4 % (0.0-1.0); EOSINOPHILS # (AUTO) 0.1 (0.0-0.4); EOSINOPHILS % 0.7 % (0.0-6.0); HEMOGLOBIN 10.8 g/dL (12.0-16.0); LYMPHOCYTES # (AUTO) 1.4 (1.0-3.2); LYMPHOCYTES % 11.5 % (18.0-39.1); MEAN CORPUSCULAR HEMOGLOBIN 30.5 pg (28-32); MEAN CORPUSCULAR HGB CONC 33.8 g/dL (31-35); MEAN CORPUSCULAR VOLUME 90.4 fL (81-99); MONOCYTES # (AUTO) 1.1 (0.2-0.8); MONOCYTES % 8.7 % (4.4-11.3); NEUTROPHILS # (AUTO) 9.8 (2.1-6.9); NEUTROPHILS % 77.9 % (38.7-80.0); PLATELET COUNT 236 x10e3/uL (140-360); RED BLOOD COUNT 3.54 x10e6/uL (3.6-5.1)
[2017-04-22 07:40] LABS: ANION GAP 19.9 mmol/L (8-16); CALCIUM 9.6 mg/dL (8.4-10.2); CREATININE, SERUM 1.92 mg/dL (0.57-1.11); POTASSIUM 3.9 mmol/L (3.5-5.1)
[2017-04-22] MEDS: INSULIN LISPRO 100 UNIT/1 ML 3ML VIAL SQ SCH ×3 (07:40→16:07)
[2017-04-22] MEDS: INSULIN REGULAR, HUMAN 100 UNIT/1 ML 3ML VIAL SQ SCH ×4 (07:40→21:04)
[2017-04-22] MEDS: METOCLOPRAMIDE HCL 10 MG TAB PEG SCH ×4 (09:27→21:00)
[2017-04-22] MEDS: LIDOCAINE 5% PATCH TP SCH (09:27)
[2017-04-22] MEDS: SPIRONOLACTONE 25 MG TAB PEG SCH ×2 (09:27→16:20)
[2017-04-22] MEDS: FUROSEMIDE 40 MG TAB PEG SCH (09:27)
[2017-04-22] MEDS: AMLODIPINE BESYLATE 10 MG TAB PEG SCH (09:27)
[2017-04-22] MEDS: CLONIDINE HCL 0.1 MG TAB PEG SCH ×2 (09:27→16:20)
[2017-04-22] MEDS: DEXTROSE 50% SYRINGE 50 ML IV PRN (15:41)
--- NOTE | 2017-04-22 16:01 | Diagnostic Imaging Report ---
PROCEDURE: A single AP view of the chest. COMPARISON: 04/21/17 INDICATIONS: FOLLOW UP PNEUMONIA FINDINGS: Lines/tubes: Unchanged tracheostomy tube. Unchanged descending thoracic aorta stent as well as a stent overlying to the right of the tracheostomy tube. Lungs: Low lung volumes. Central vascular congestion and mild interstitial edema. Unchanged left lower lung field opacification. Decreased right base opacification. Pleura: There is no pneumothorax. Heart and mediastinum: The cardiomediastinal silhouette is enlarged. Median sternotomy wires and mediastinal surgical clips are again seen. Bones: No acute bony abnormality. IMPRESSION: Central vascular congestion and mild interstitial edema. Unchanged left lower lung field opacification, representing effusion and/or pneumonia. Decreased right base atelectasis. Dictated by: Tarik Centeno M.D. on 04/22/2017 at 16:10 Electronically approved by: Tarik Centeno M.D. on 04/22/2017 at 16:10
[2017-04-22] MEDS: ACETAMINOPHEN 325 MG TAB PO PRN (21:04)
[2017-04-23] VITALS (7 sets, daily range): BP systolic 137–182; BP diastolic 66–82
[2017-04-23] MEDS: METOPROLOL TARTRATE 25 MG TAB PEG SCH ×4 (00:28→17:31)
[2017-04-23] MEDS: IPRATROPIUM BROMIDE 0.02% 2.5 ML NEB NEB SCH ×4 (01:07→19:23)
[2017-04-23] MEDS: ALBUTEROL SULF 0.083% NEB SOLN 3 ML NEB NEB SCH ×4 (01:07→19:23)
[2017-04-23] MEDS: CEFEPIME HCL 2 GM VIAL IV SCH (03:56)
[2017-04-23] MEDS: LEVOFLOXACIN 250MG/D5W 50ML 50 ML IV SCH (03:56)
[2017-04-23] MEDS: FUROSEMIDE 40 MG TAB PEG SCH (09:14)
[2017-04-23] MEDS: LIDOCAINE 5% PATCH TP SCH (09:14)
[2017-04-23] MEDS: CLONIDINE HCL 0.1 MG TAB PEG SCH ×2 (09:14→17:31)
[2017-04-23] MEDS: SPIRONOLACTONE 25 MG TAB PEG SCH ×2 (09:14→17:31)
[2017-04-23] MEDS: AMLODIPINE BESYLATE 10 MG TAB PEG SCH (09:14)
[2017-04-23] MEDS: METOCLOPRAMIDE HCL 10 MG TAB PEG SCH ×4 (09:14→20:45)
[2017-04-23] MEDS: INSULIN REGULAR, HUMAN 100 UNIT/1 ML 3ML VIAL SQ SCH ×4 (09:23→20:45)
[2017-04-23] MEDS: INSULIN LISPRO 100 UNIT/1 ML 3ML VIAL SQ SCH ×3 (09:24→17:46)
--- NOTE | 2017-04-23 18:55 | Diagnostic Imaging Report ---
PROCEDURE:MODIFIED BA. SWALLOW COMPARISON:Chest x-ray 04/22/2017. INDICATIONS:Patient had a foreign body in the posterior fiber-optic endoscopic exam. DISCUSSION: Fluoroscopic examination was performed in conjunction with speech pathology during swallowing of a variety of thin and thick liquid consistencies. RADIATION DOSE: Total Time: 3.3 min Cumulative area dose product: 18.758 cGym\S\2 Cumulative air kerma: 1.867 mGy FINDINGS: PREMATURE SPILLAGE: Over the base of the tongue: All consistencies To vallecula: All consistencies To pyriform sinus: With thin liquids. Intermittent with nectar thick liquids. Juice portion of mixed mechanical soft. LARYNGEAL PENETRATION: Penetration into the laryngeal vestibule with thin liquids and juice portion of mixed mechanical soft. ASPIRATION: Right silent aspiration of thin liquids during swallow. Trace silent aspiration of the juice portion of mixed mechanical soft. RESIDUE: VALLECULA: Mild following swallows of all consistencies PYRIFORM SINUS: Mild following swallows of all consistencies PHARYNGEAL WALL: Mild following swallows of all consistencies BASE OF TONGUE: Mild following swallows of all consistencies CONCLUSION:Penetration and aspiration with thin liquids and juice portion of next mechanical soft Please see report from speech pathology for complete details. Dictated by: Abel Funez M.D. on 04/23/2017 at 19:04 Electronically approved by: Abel Funez M.D. on 04/23/2017 at 19:04
[2017-04-23] MEDS: TRIMETHOPRIM/SULFAMETHOXAZOLE 40MG/5ML SUSP GT SCH (20:45)
[2017-04-24 00:51] VITALS: BP 130/60
[2017-04-24] MEDS: ALBUTEROL SULF 0.083% NEB SOLN 3 ML NEB NEB SCH ×4 (01:05→19:30)
[2017-04-24] MEDS: IPRATROPIUM BROMIDE 0.02% 2.5 ML NEB NEB SCH ×4 (01:05→19:30)
[2017-04-24] MEDS: CEFEPIME HCL 1 GM VIAL IV SCH ×2 (03:07→16:30)
[2017-04-24] MEDS: METOPROLOL TARTRATE 25 MG TAB PEG SCH ×4 (05:22→18:00)
[2017-04-24 05:30] VITALS: BP 160/80
[2017-04-24 07:21] LABS: ANION GAP 21.6 mmol/L (8-16); CALCIUM 9.7 mg/dL (8.4-10.2); POTASSIUM 3.6 mmol/L (3.5-5.1)
[2017-04-24 07:55] VITALS: BP 177/76
[2017-04-24] MEDS: INSULIN REGULAR, HUMAN 100 UNIT/1 ML 3ML VIAL SQ SCH ×4 (08:00→21:00)
[2017-04-24] MEDS: INSULIN LISPRO 100 UNIT/1 ML 3ML VIAL SQ SCH ×3 (08:00→17:00)
[2017-04-24] MEDS: TRIMETHOPRIM/SULFAMETHOXAZOLE 40MG/5ML SUSP GT SCH (08:30)
[2017-04-24] MEDS: METOCLOPRAMIDE HCL 10 MG TAB PEG SCH ×4 (08:30→20:25)
[2017-04-24] MEDS: FUROSEMIDE 40 MG TAB PEG SCH (08:30)
[2017-04-24] MEDS: AMLODIPINE BESYLATE 10 MG TAB PEG SCH (08:30)
[2017-04-24] MEDS: LIDOCAINE 5% PATCH TP SCH (08:30)
[2017-04-24] MEDS: CLONIDINE HCL 0.1 MG TAB PEG SCH ×2 (08:30→17:00)
[2017-04-24] MEDS: SPIRONOLACTONE 25 MG TAB PEG SCH (08:30)
[2017-04-24 11:36] VITALS: BP 160/71
[2017-04-24] MEDS ORDERED: INSULIN LISPRO 100 UNIT/1 ML 3ML VIAL SQ ONE (14:00)
[2017-04-24 16:24] VITALS: BP 164/72
[2017-04-24 20:00] VITALS: BP 130/67
[2017-04-24] MEDS: VANCOMYCIN 1GM/NS 250 ML 250 ML IV SCH (20:24)
[2017-04-25] VITALS: BP 121/68
[2017-04-25] MEDS: ALBUTEROL SULF 0.083% NEB SOLN 3 ML NEB NEB SCH ×4 (00:30→20:15)
[2017-04-25] MEDS: IPRATROPIUM BROMIDE 0.02% 2.5 ML NEB NEB SCH ×4 (00:30→20:15)
--- NOTE | 2017-04-25 00:31 | Consultation ---
DATE OF CONSULTATION: REASON FOR CONSULTATION: The patient is concerned about pneumonia. Thank you so much for asking to see this patient. HISTORY OF PRESENT ILLNESS: This is a patient who is known to me from before. She is a very pleasant, unfortunate 76-year-old female who has history of diabetes mellitus, peripheral vascular disease, on insulin, neuropathy, Charcot joint. Her problem started when she had a thoracic aortic aneurysm which was dissecting and she was transferred to [facility] [place]. About a couple of years ago, the patient had repair of the aneurysm with transcutaneous aortic valve replacement. She had stroke and the patient had prolonged stay. She had tracheostomy. She had feeding tube at one point. She was in [place] for a prolonged time. The patient finally improved. She also had an episode of sepsis when she became confused. She got better with antibiotic and then discharged home. She has very caring family. She has history of chronic bilateral vocal cord paralysis requiring permanent tracheostomy. She is cared by her who is very caring. She has history of carotid surgery, hypertension, congestive heart failure, hysterectomy, appendectomy, PEG tube placement, tracheostomy which she still has. She is having a problem with swallowing and aspiration. She is coming this time, apparently she had shortness of breath. The patient when came here, she had a pleural effusion. It was transudative. The patient underwent a bronchoscopy and there was a foreign body which was noted near the larynx for which she was taken to the operating room and she was seen by Dr. Alvarez who removed the foreign body from the larynx. The patient is currently alert. According to the , she remains slightly lethargic, but she is slightly better. Infectious disease was consulted because she was growing Staphylococcus aureus. 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 She has a Wilks catheter. Currently, the patient is alert, follows simple command. Infectious disease was consulted to make recommendation towards antibiotic. PAST MEDICAL HISTORY: As above. PAST SURGICAL HISTORY: As above. ALLERGIES: NKDA. SOCIAL HISTORY: There is no smoking, drug abuse, alcohol abuse. FAMILY HISTORY: Hypertension. REVIEW OF SYSTEMS CONSTITUTIONAL: At the present time, she is showing fatigue. HEENT: There is no headache, visual changes. GI: There is no nausea, no vomiting, no diarrhea. CARDIAC: There is no arrhythmia. NEURO: No seizure activity. SKIN: There is no rash. JOINTS: No swelling or erythema. LABORATORY DATA: Reviewed. White count 12.52, hemoglobin of 10, her platelet was 236,000. Sodium 140, potassium 3.6, creatinine of 2. MEDICATIONS: The patient is currently on metoprolol, Reglan. She was on cefepime and Bactrim. PHYSICAL EXAMINATION GENERAL: She is currently alert, oriented. Does not seem to be in acute distress. VITALS: Stable. Currently afebrile. HEENT: She is not icteric. NECK: Supple. CHEST: A few crackles bilateral. COR: S1, S2. No murmur. ABDOMEN: Soft. IMPRESSION 1. Foreign body which was removed, probably aspiration. 2. Post obstructive pneumonia, probably getting better. 3. Component of congestion, may be cardiac. 4. Left lower lobe opacification which is probably from pneumonia and may be pleural effusion, which has been transudative. 5. Chronic kidney disease. 6. History of cerebrovascular accident. PLAN: I would recommend to put her on vancomycin for the time being, discontinue Bactrim, discontinue well cefepime. Adjust for her kidney function. Aspiration precaution. She would benefit from vancomycin for at least 7 to 8 days. She has been doing well clinically, in terms that she became more alert now. Recheck CBC, recheck chem panel. Chronic kidney disease, history of CVA. Will follow with you. Job#: [id number] JORDAN
[2017-04-25 06:38] LABS: BASOPHILS % 0.3 % (0.0-1.0); EOSINOPHILS % 0.3 % (0.0-6.0); HEMATOCRIT 33.8 % (34.2-44.1); HEMOGLOBIN 11.1 g/dL (12.0-16.0); LYMPHOCYTES # (AUTO) 1.6 (1.0-3.2); LYMPHOCYTES % 13.7 % (18.0-39.1); MEAN CORPUSCULAR HEMOGLOBIN 30.5 pg (28-32); MEAN CORPUSCULAR HGB CONC 32.8 g/dL (31-35); MEAN CORPUSCULAR VOLUME 92.9 fL (81-99); MONOCYTES % 8.6 % (4.4-11.3); NEUTROPHILS # (AUTO) 8.9 (2.1-6.9); NEUTROPHILS % 76.2 % (38.7-80.0); PLATELET COUNT 244 x10e3/uL (140-360); RED BLOOD COUNT 3.64 x10e6/uL (3.6-5.1); RED CELL DISTRIBUTION WIDTH 13.9 % (11.7-14.4)
[2017-04-25] MEDS: METOPROLOL TARTRATE 25 MG TAB PEG SCH ×5 (06:42→23:16)
[2017-04-25 06:58] LABS: ANION GAP 19.9 mmol/L (8-16); CALCIUM 9.6 mg/dL (8.4-10.2); CREATININE, SERUM 2.15 mg/dL (0.57-1.11); POTASSIUM 3.9 mmol/L (3.5-5.1)
[2017-04-25] MEDS: INSULIN REGULAR, HUMAN 100 UNIT/1 ML 3ML VIAL SQ SCH ×4 (08:15→21:00)
[2017-04-25] MEDS: INSULIN LISPRO 100 UNIT/1 ML 3ML VIAL SQ SCH ×3 (08:15→21:00)
[2017-04-25] MEDS: FUROSEMIDE 40 MG TAB PEG SCH (08:45)
[2017-04-25] MEDS: LIDOCAINE 5% PATCH TP SCH (08:45)
[2017-04-25] MEDS: METOCLOPRAMIDE HCL 10 MG TAB PEG SCH ×4 (08:45→21:16)
[2017-04-25] MEDS: AMLODIPINE BESYLATE 10 MG TAB PEG SCH (08:45)
[2017-04-25] MEDS: CLONIDINE HCL 0.1 MG TAB PEG SCH ×2 (08:45→16:45)
[2017-04-25 10:40] VITALS: BP 114/64
--- NOTE | 2017-04-25 13:58 | Consultation ---
DATE OF CONSULTATION: April 25, 2017 NEPHROLOGY CONSULT REASON FOR THE CONSULT: Chronic kidney disease and YAHAIRA. HISTORY OF PRESENT ILLNESS: This is a 76-year-old female who is unfortunate. She is known to have hypertension, diabetes and also CKD stage 3 with her baseline creatinine between 1.5 to 1.7. Also, on top of that she had a recent history of thoracic aortic aneurysm dissection for which she had a repair in the [facility] along with TAVR, and since then she was transferred to [place]. She had a stroke. She has been vent-dependent status post tracheostomy on trach collar and status post PEG tube after her stroke, and she has been debilitated. Her takes care of her at home. She was discharged from [facility] . She is basically coming again with pneumonia infection for which bronchoscopy was done with a foreign object in the larynx that was removed, probably postobstructive pneumonia with her cultures growing pseudomonas and Staph aureus and also MRSA in the urine. She has a history of recurrent pneumonias and UTIs. We are consulted given BUN and creatinine elevated. REVIEW OF SYSTEMS: Today review of systems is negative otherwise. PAST MEDICAL HISTORY: As mentioned above. PAST SURGICAL HISTORY: Status post trach and PEG and status post aortic dissection repair status post TAVR, status post appendectomy and hysterectomy. FAMILY HISTORY: Positive for hypertension and diabetes. SOCIAL HISTORY: No smoking, alcohol or IV drug abuse. Living with her . VITAL SIGNS: Today blood pressure 114/64, heart rate 69, temperature 97.1. PHYSICAL EXAMINATION GENERAL APPEARANCE: No acute distress. She is awake, on trach collar. HEAD, EARS, EYES, NECK: No lymphadenopathy. HEART: Regular rate and rhythm. LUNGS: Bilateral rales. ABDOMEN: Soft, nontender. EXTREMITIES: No edema. LABS: White count is 11.6, hemoglobin is 11.1. Sodium 140, potassium 3.9. Her BUN is up to 95, and creatinine is 2.1. ASSESSMENT AND PLAN 1. Acute kidney injury on top of chronic kidney disease stage 3 in the setting of acute tubular necrosis and infection. At this time, the patient has been on diuresis and her BUN and creatinine going up. Monitor closely. I will decrease the Lasix dose to 20 daily for now. Monitor her urine output closely. Check fraction excretion of sodium. Avoid further nephrotoxins. Adjust antibiotics to current GFR. 2. Electrolytes are within range so far. 3. Hypertension. Titrate medication. 4. Diabetes. Monitor blood sugar. 5. Postobstructive pneumonia, status post bronchoscopy and removal of a foreign object from the larynx. She is positive cultures for Staph aureus and pseudomonas, for which ID is wanting to switch antibiotics to p.o. ciprofloxacin and doxycycline for coverage, and probably the MRSA in her urine is colonization. 6. Chronic respiratory failure on trach collar. Patient failing barium swallow eval recurrent. She needs to stay on tube feeding. 7. Recurrent pleural effusion, status post thoracentesis. Keep gentle diuresis. 8. Thoracic aortic dissection, status post repair, status post cerebrovascular accident, stroke. Patient is bedbound, debilitated, status post trach and percutaneous endoscopic gastrotomy. taking care of her at home. As per the social media editor and nurse outreach case manager, note she is out of her acute days at [facility]. She might need to go back home with home health. Thank you for the consult. Job#: [id number] KATHERYN
[2017-04-25 16:57] VITALS: BP 135/74
[2017-04-25] MEDS: INSULIN DETEMIR 100 UNIT/ML PEN SQ SCH (17:00)
[2017-04-25 20:00] VITALS: BP 141/71
[2017-04-25] MEDS: VANCOMYCIN 1GM/NS 250 ML 250 ML IV SCH (21:16)
[2017-04-25] MEDS: DEXTROSE 50% SYRINGE 50 ML IV PRN (22:43)
[2017-04-26] VITALS: BP 119/65
[2017-04-26] MEDS: ALBUTEROL SULF 0.083% NEB SOLN 3 ML NEB NEB SCH ×3 (01:45→13:00)
[2017-04-26] MEDS: IPRATROPIUM BROMIDE 0.02% 2.5 ML NEB NEB SCH ×3 (01:45→13:00)
[2017-04-26 04:00] VITALS: BP 146/68
[2017-04-26] MEDS: METOPROLOL TARTRATE 25 MG TAB PEG SCH (06:00)
[2017-04-26 06:40] LABS: BASOPHILS % 0.3 % (0.0-1.0); EOSINOPHILS # (AUTO) 0.1 (0.0-0.4); EOSINOPHILS % 0.5 % (0.0-6.0); HEMOGLOBIN 11.2 g/dL (12.0-16.0); LYMPHOCYTES # (AUTO) 1.9 (1.0-3.2); LYMPHOCYTES % 16.3 % (18.0-39.1); MEAN CORPUSCULAR HEMOGLOBIN 30.2 pg (28-32); MEAN CORPUSCULAR VOLUME 94.3 fL (81-99); MONOCYTES # (AUTO) 1.3 (0.2-0.8); MONOCYTES % 11.3 % (4.4-11.3); NEUTROPHILS # (AUTO) 8.2 (2.1-6.9); NEUTROPHILS % 70.5 % (38.7-80.0); PLATELET COUNT 202 x10e3/uL (140-360); RED BLOOD COUNT 3.71 x10e6/uL (3.6-5.1); RED CELL DISTRIBUTION WIDTH 14.2 % (11.7-14.4)
[2017-04-26 07:04] LABS: ANION GAP 16.9 mmol/L (8-16); CALCIUM 9.4 mg/dL (8.4-10.2); CREATININE, SERUM 2.03 mg/dL (0.57-1.11); MAGNESIUM 2.2 MG/DL (1.3-2.1); PHOSPHORUS 3.8 MG/DL (2.3-4.7); POTASSIUM 3.9 mmol/L (3.5-5.1)
[2017-04-26] MEDS: INSULIN REGULAR, HUMAN 100 UNIT/1 ML 3ML VIAL SQ SCH (07:30)
[2017-04-26 07:59] VITALS: BP 156/77
[2017-04-26] MEDS ORDERED: FUROSEMIDE 20 MG TAB PEG SCH (09:00)
[2017-04-26] MEDS: AMLODIPINE BESYLATE 10 MG TAB PEG SCH (09:00)
[2017-04-26] MEDS: LIDOCAINE 5% PATCH TP SCH (09:00)
[2017-04-26] MEDS: CLONIDINE HCL 0.1 MG TAB PEG SCH (09:00)
[2017-04-26] MEDS ORDERED: FUROSEMIDE 40 MG TAB PEG SCH (09:00)
[2017-04-26] MEDS: INSULIN DETEMIR 100 UNIT/ML PEN SQ SCH (09:00)
[2017-04-26] MEDS: METOCLOPRAMIDE HCL 10 MG TAB PEG SCH (09:00)
[2017-04-26] MEDS: INSULIN LISPRO 100 UNIT/1 ML 3ML VIAL SQ SCH (09:00)
[2017-04-26] MEDS ORDERED: SODIUM CHLORIDE 0.9% 1000ML 1,000 ML IV SCH (11:00)
[2017-04-26 11:39] VITALS: BP 133/61
[2017-04-26 15:51] VITALS: BP 132/60
== END 2017-04-26 18:31 | disposition home health service (06) | DRG 871 ==
LOC: ER 01:15 → MED/SURG3 05:37
PROC: 0CCS8ZZ Extirpation of Matter from Larynx, Via Natural or Artificial Opening Endoscopic (ICD-10-PCS; principal; 2017-04-20 12:00)
PROC: 0BCB8ZZ Extirpation of Matter from Left Lower Lobe Bronchus, Via Natural or Artificial Opening Endoscopic (ICD-10-PCS; 2017-04-20 12:00)
DX: A41.9 Sepsis, unspecified organism (principal); J15.6 Pneumonia due to other Gram-negative bacteria; N17.0 Acute kidney failure with tubular necrosis; I50.33 Acute on chronic diastolic (congestive) heart failure; J96.10 Chronic respiratory failure, unspecified whether with hypoxia or hypercapnia; T17.308A Unspecified foreign body in larynx causing other injury, initial encounter; E11.22 Type 2 diabetes mellitus with diabetic chronic kidney disease; D62 Acute posthemorrhagic anemia; E11.40 Type 2 diabetes mellitus with diabetic neuropathy, unspecified; I13.0 Hypertensive heart and chronic kidney disease with heart failure and stage 1 through stage 4 chronic kidney disease, or unspecified chronic kidney disease; N39.0 Urinary tract infection, site not specified; N17.9 Acute kidney failure, unspecified; N18.3 Chronic kidney disease, stage 3 (moderate); E11.51 Type 2 diabetes mellitus with diabetic peripheral angiopathy without gangrene; D63.1 Anemia in chronic kidney disease; F32.9 Major depressive disorder, single episode, unspecified; K21.9 Gastro-esophageal reflux disease without esophagitis; Z95.2 Presence of prosthetic heart valve; Z93.0 Tracheostomy status; Z79.4 Long term (current) use of insulin; Z74.01 Bed confinement status; Z86.73 Personal history of transient ischemic attack (TIA), and cerebral infarction without residual deficits
CPT/HCPCS: 31623; 36415; 36430; 36600; 70450; 71045; 74230; 80048; 80053; 81001; 82140; 82550; 82553; 82805; 82948; 83518; 83605; 83690; 83735; 83880; 84100; 84443; 84484; 85014; 85018; 85025; 85610; 85730; 86850; 86900; 86920; 87040; 87070; 87086; 87102; 87116; 87186; 87205; 87206; 87335; 87400; 88112; 88302; 88305; 88312; 93005; 94640; 97139; 99284; J0692; J1940; J1956; J2001; J2250; J3370; J7050; J7799; P9016